=== PATIENT | female | born 1940 | race African-American/Black ===

== ENCOUNTER 2025-05-21 20:38 | Inpatient (IN) | payer MEDICARE, SELFPAY ==
[2025-05-21 16:15] VITALS: BP 142/71
[2025-05-21 16:54] LABS: Hematocrit 36.2 % (37.0-47.0); Hemoglobin 12.4 g/dL (12.0-16.0); Mean Corp Hgb Conc. 34.3 g/dL (33.0-37.0); Mean Corpuscular Volume 85.8 fL (81.0-99.0); Nucleated Red Blood Cells % 0 %; Platelet Count 136 10^3/uL (130-400); Red Cell Dist. Width 17.4 % (11.5-14.5)
[2025-05-21 17:03] LABS: ALT (SGPT) 92 U/L (0-35); AST (SGOT) 118 U/L (14-36); Albumin 2.8 g/dl (3.5-5.0); Alkaline Phosphatase 579 U/L (38-126); Blood Urea Nitrogen 76 mg/dl (7-17); Calcium 9.8 mg/dl (8.4-10.2); Carbon Dioxide 19 mmol/L (22-30); Chloride 105 mmol/L (98-107); Glucose 85 mg/dl (70-99); Potassium 4.8 mmol/L (3.5-5.1); Sodium 130 mmol/L (135-145); Total Protein 5.8 g/dl (6.3-8.2); eGFR 12.09
--- NOTE | 2025-05-21 19:34 | ED.GENMED ---
History of Present Illness
General
Chief Complaint: Abnormal Lab Value
Source: patient, records and spouse
Time Seen by Provider: 05/21/25 18:42
History of Present Illness
History of Present Illness:
84-year-old female with past medical history of breast cancer with bony metastases presenting to the ER at the request of the [facility] for evaluation of acute renal failure. Patient states that for the last 2 days or so she has
felt 'lousy' noting just a generalized malaise. She went to the outpatient infusion department yesterday where she had blood work done and had a liter of fluids given to her and was then sent home, contacted today for the abnormal renal function
and advised to come to the emergency department for further evaluation. She denies any fevers, chills, rigors, nausea or vomiting, bowel changes or urinary symptoms. She states she feels as if she is drinking her normal amount but not eating as
much as she normally did. Patient was discontinued off of Keytruda a few weeks ago due to side effects. No reported history of renal dysfunction. Patient denies any excessive use of anti-inflammatories.
Past History
Past History
ED Past Medical History: Cancer
ED Past Surgical History: Orthopedic
Social History
Tobacco: Non-smoker
Alcohol: None
Drug: None
Personal:
Living: with family
Review of Systems
Review of Systems
All Other Systems: ROS reviewed and negative except as documented in HPI and ROS
Phy Exam
Physical Exam
Physical Exam:
GENERAL: Alert , in no apparent distress, appears older than stated age, thin
HEAD: Normocephalic atraumatic
EYE: conjunctiva clear
NECK: Supple
ENT: o/p clr, mmm.
CARDIAC: Regular rate and rhythm
LUNGS: Clear breath sounds bilaterally, no acute respiratory distress, no wheezes/rales/rhonchi
NEUROLOGICAL: Alert and oriented
SKIN: Warm and dry, skin intact.
MUSCULOSKELETAL: well perfused. Nonpitting ankle edema
PSYCH: Normal and appropriate interaction.
Scores
Heart Failure Risk
Heart Failure Risk Score: Not Applicable
Heart Score for Chest Pain Patients
STEMI patient?: Not applicable
Withdrawal Assessment of Alcohol
Withdrawal Assessment Completed?: Not applicable
Course
Orders/Labs/Results
Orders:
Orders
05/21/25 16:28
CMP [Comprehensive Metabolic Panel] Urgent
Complete Blood Count/With Diff Urgent
05/21/25 18:43
Electrocardiogram (*1) Urgent
Reason for Study: Other
Other Reason for Exam: renal failure
Urinalysis Reflex To Culture Urgent
Urine Creatinine Urgent
0.9% Sodium Chloride 1000 ml [Nss] 1,000 ml IV BOLUS
05/21/25 18:44
EKG- Treatment ONCE
05/21/25 18:45
Urine - Eosinophils [Body Fluid for Eosinophils] Urgent
Fluid Source: Urine
Urine Sodium Urgent
05/21/25 19:30
0.9% Sodium Chloride 1000 ml [Nss] 1,000 ml IV BOLUS
05/21/25 19:33
Add On- LAB Urgent
Tests Added?: cpk
Abnormal Lab Results
05/21/25
16:28
Hct 36.2 L %
(37.0-47.0)
RDW 17.4 H %
(11.5-14.5)
Abs Immat Gran (auto) 0.3 H 10^3/uL
(0-0.05)
Absolute Lymphs (auto) 0.3 L 10^3/uL
(1.2-3.4)
Immature Gran % 4.4 H %
(0-0.5)
Neutrophils % 84.1 H %
(42.2-75.2)
Lymphocytes % 5.3 L %
(20.5-51.1)
Sodium 130 L mmol/L
(135-145)
Carbon Dioxide 19 L mmol/L
(22-30)
BUN 76 H mg/dl
(7-17)
Creatinine 3.6 H mg/dL
(0.6-1.0)
Total Bilirubin 2.1 H mg/dl
(0.2-1.3)
AST 118 H U/L
(14-36)
ALT 92 H U/L
(0-35)
Alkaline Phosphatase 579 H U/L
(38-126)
Total Protein 5.8 L g/dl
(6.3-8.2)
Albumin 2.8 L g/dl
(3.5-5.0)
05/21/25 16:28
05/21/25 16:28
Vital Signs
Initial and Last Documented VS:
Initial Vital Signs
Temp Pulse Resp BP Pulse Ox
97.5 F 62 16 142/71 96
05/21/25 16:15 05/21/25 16:15 05/21/25 16:15 05/21/25 16:15 05/21/25 16:15
Last Documented Vital Signs
Temp Pulse Resp BP Pulse Ox
97.5 F 62 16 142/71 96
05/21/25 16:15 05/21/25 16:15 05/21/25 16:15 05/21/25 16:15 05/21/25 16:15
MDM/Problems Addressed
Differential Diagnosis Includes:
Progression of mets/bone breakdown
Nephritis
Less concern for obstructive uropathy
Medication reaction
Dehydration
Electrolyte imbalance
MDM/Problems Addressed:
84-year-old female presenting to the ER for evaluation of acute renal failure at the request of her oncologist. She is in no acute distress but does admit to generalized malaise. No fevers or infectious symptoms. Recently discontinued off
Keytruda due to side effects. Labs initiated on arrival show a BUN of 76 and a creatinine of 3.6, sodium 130. Mild transaminitis likely due to known metastatic disease. Will treat here with additional fluids. Additional urine studies and
ultrasound of the kidneys ordered. Will notify hospitalist team, will likely need nephrology and consult.
Chronic conditions affecting care: Cancer
Acute Exacerbation and/or Progression of Chronic Illness: Cancer
*Pulse Oximetry
SaO2: 96
Oxygen Mode of Delivery: Room air
Patient hypoxic: no
*EKG
Heart Rate: 104
Rate: tachycardiac
Rhythm: sinus and PVC's
[place]: left axis deviation
Ischemia: non-specific ST changes
*Critical Care Note
Total Time (30-74mins, 75-104mins- exclusive of procedures): Not Applicable
Data Reviewed
Review of Other/Old Records Reveals: Labs and Radiology Studies
Source: patient
Patient Management
Discussion with other providers: Hospitalist
Escalation/DeEscalation of care consider admission/obs:
Hospitalist team was notified and accepts for continued evaluation and treatment
ED Attending Note
-
Portions of this chart may have been created with voice recognition software.� Occasional wrong word or��sound alike� substitutions may have occurred due to the inherent limitations of voice recognition software.
Discharge Plan
Interventions
Interventions:
*Risk Screen - Suicide Last Done: 05/21/25 16:10
*General Assessment Last Done: 05/21/25 16:15
*ED COVID-19 Vaccine History Last Done: 05/21/25 16:15
*ED Influenza Vaccine History Last Done: 05/21/25 16:15
Discharge Date and Time
Print Language: CHILEAN
--- NOTE | 2025-05-21 19:38 | HPS.HSE ---
Addendum entered and electronically signed by Vikash Cid DO 05/22/25 00:06:
Patient seen and examined independently. Agree with findings and plan as set forth by LINA Downing.
Patient is an 84y F with PMH significant for widely metastatic breast cancer no currently on active treatment who presents to ED at the direction of her Oncologist for evaluation of abnormal labs. Patient has been somewhat weak of late with poor
appetite. She stopped Keytruda a few weeks ago due to adverse side effects. She is on no treatment at present - though systemic chemo is being considered.
Patient had routine labs done as an outpatient and was called today and advised to present to the ED.
states that she has urinated 2-3 times in the past 24 hours. No hematuria or dysuria. No abdominal pain or flank pain. No fevers or chills.
Ass:
CECE
Bilateral Hydronephrosis
Breast Cancer with Metastases to Bone and Liver
Plan:
Admit for further evaluation and treatment.
IVFs overnight. Hold NSAIDs / nephrotoxic medications.
Follow urine output. Monitor for improvement in labs / lytes.
Imaging in the ED (US and CT) without contrast due to renal impairment.
No evidence of halima obstruction, mass, stone, etc.
? hazy retroperitoneal stranding which may denote infiltrative process - ? secondary to progressing malignancy?
Reviewed with Urology. No role for ureteral stenting.
If no improvement in renal function / hydro with IVFs - consider PCN in IR.
Alternative in this 84y F with widely metastatic malignancy would be consideration of Hospice care.
Original Note:
Family Physician
-
Family Physician:
Chief Complaint
-
outpatient blood work
History of Present Illness
84-year-old female with past medical history of breast cancer with bony metastases presenting to the ER at the request of the [facility] for evaluation of acute renal failure. patient complained of generalized weakness, tired for past
few days. she had three episodes of loose stool on Tuesday. as per she does not eat very well. she only drinks 1/2 of ensure and sips on the water. patient stated LE edema for past few days. she also complained of dry skin. as per ,
she was having some slurred speech fo past few days. denied PALMER, dizzy or syncope. denied fever, chills, cough, congestion, chest pain, sob. denied abdominal pain,n,v. denied dysuria or hematuria. She went to the outpatient infusion department
yesterday where she had blood work done and had a liter of fluids given to her and was then sent home, contacted today for the abnormal renal function and advised to come to the emergency department for further evaluation. Patient was discontinued
off of Keytruda a few weeks ago due to side effects.
upon arrival cr of 3.6. recived normal saline x2 bag. admitting for further management
Medical History
Past Medical History
Past Medical History: Reports Other
Additional Past Medical History:
right breast cancer with bone mets
Past Surgical History: Reports Other
Additional Past Surgical History:
right mastectomy
right total hip arthroplasty
left femur proximal femur screw fixation
Social History
Tobacco: Non-smoker
Alcohol: None
Drug: None
Personal:
Living: With Family
Family History
Family History: Not pertinent
Allergies / Home Medications
Allergies reflects when Allergies were last updated in [facility].
Home Medications with original date entered in [facility]
Allergy/Medication List:
Allergies
Allergy/AdvReac Type Severity Reaction Status Date / Time
No Known Allergies Allergy Unverified 05/21/25 16:19
Review of Systems
-
Constitutional: Reports Fatigue
EENT: Reports No Symptoms
Respiratory: Reports No Symptoms
Cardiac: Reports No Symptoms
Abdomen/GI: Reports Diarrhea
: Reports No Symptoms
Musculoskeletal: Reports No Symptoms
Skin: Reports No Symptoms
Neurological: Reports Weakness
Endocrine: Reports No Symptoms
Hematologic/Lymphatic: Reports No Symptoms
Psych: Reports No Symptoms
Physical Exam
Vital Signs
Vital Signs
Temp Pulse Resp BP Pulse Ox
97.5 F 62 16 142/71 96
05/21/25 16:15 05/21/25 16:15 05/21/25 16:15 05/21/25 16:15 05/21/25 19:38
Physical Exam
General: Well Developed, Well Nourished and No Apparent Distress
HEENT: NormoCephalic, Moist mucous membranes and Atraumatic
Respiratory: Clear
Cardiac: S1/S2 and Regular Rhythm; No Murmur or Rub
GI: Soft, Non Tender, Non Distended and Normal Bowel Sounds; No Organomegaly
Rectal: Deferred by Provider
Musculoskeletal: No Clubbing, No Cyanosis and Other (b/l LE edema)
Skin: No Rash
Neuro: AO x 3 and Nonfocal/grossly intact
Psych: Calm
Laboratory Results
-
05/21/25 16:28
05/21/25 16:28
Laboratory Results
Total Bilirubin 2.1 mg/dl (0.2-1.3) H 05/21/25 16:28
AST 118 U/L (14-36) H 05/21/25 16:28
ALT 92 U/L (0-35) H 05/21/25 16:28
Alkaline Phosphatase 579 U/L (38-126) H 05/21/25 16:28
Data Reviewed
-
Lab Data: Labs Reviewed by me
Impression/Plan
-
#acute renal failure/hyponatremia concern for dehydration/bilateral hydronephrosis
-na 130, cr 3.6
-US of kidneys MODERATE BILATERAL RENAL COLLECTING SYSTEM DILATATION.Known small right pleural effusion and hepatic lesions compatible with known metastatic disease.
-received NSx2l
-UA for creatinine, sodium, eosinophil, CK sent
-UA ordered in ER
-fluids continued
-BMP in am
-urology consulted
#transaminitis due to know metastatic disease
-TBili 2.1,AST 118,ALT 92,ALK 579
-ctm
#hxt of breast cancer with bone oren
-follows [facility]
-oxy continued
#DVT prophylaxis
-scd
#CODE status
-full code
[2025-05-21] MEDS: NSS 1000 IV (19:44)
[2025-05-21 19:57] VITALS: BMI 23.0
[2025-05-21 19:59] LABS: Urine Character Clear (Clear)
--- NOTE | 2025-05-21 20:01 | ED.GENMED ---
History of Present Illness
General
Chief Complaint: Abnormal Lab Value
Source: patient
Time Seen by Provider: 05/21/25 18:42
History of Present Illness
History of Present Illness:
84-year-old female with past medical history of metastatic breast cancer to the bone presenting to the emergency department for evaluation at the request
Past History
Past History
ED Past Medical History: Cancer
ED Past Surgical History: Orthopedic
Social History
Tobacco: Non-smoker
Alcohol: None
Drug: None
Personal:
Living: with family
Course
Orders/Labs/Results
Orders:
Orders
05/21/25 16:28
CMP [Comprehensive Metabolic Panel] Urgent
Complete Blood Count/With Diff Urgent
Creatine Phosphokinase Urgent
Comment: ADD ON
05/21/25 18:43
Electrocardiogram (*1) Urgent
Reason for Study: Other
Other Reason for Exam: renal failure
0.9% Sodium Chloride 1000 ml [Nss] 1,000 ml IV BOLUS
05/21/25 18:44
EKG- Treatment ONCE
05/21/25 19:30
0.9% Sodium Chloride 1000 ml [Nss] 1,000 ml IV BOLUS
05/21/25 19:33
Add On- LAB Urgent
Tests Added?: cpk
05/21/25 19:38
US Kidneys [US Renal Only W/O Bladder] Urgent
Comment:
Reason For Exam: acute renal failure
05/21/25 19:49
Urinalysis Reflex To Culture Urgent
Date Specimen was Collected: 05/21/25
Time Specimen was Collected: 19:47
Urine - Eosinophils [Body Fluid for Eosinophils] Urgent
Fluid Source: Urine
Date Specimen was Collected: 05/21/25
Time Specimen was Collected: 19:47
Urine Creatinine Urgent
Date Specimen was Collected: 05/21/25
Time Specimen was Collected: 19:47
Urine Microscopic Reflex Cult Urgent
Urine Sodium Urgent
Date Specimen was Collected: 05/21/25
Time Specimen was Collected: 19:47
Urine Culture Urgent
OZ Source: U
Specimen Description:
Date Specimen was Collected: 05/21/25
Time Specimen was Collected: 19:47
Abnormal Lab Results
05/21/25 05/21/25
16:28 19:49
Hct 36.2 L %
(37.0-47.0)
RDW 17.4 H %
(11.5-14.5)
Abs Immat Gran (auto) 0.3 H 10^3/uL
(0-0.05)
Absolute Lymphs (auto) 0.3 L 10^3/uL
(1.2-3.4)
Immature Gran % 4.4 H %
(0-0.5)
Neutrophils % 84.1 H %
(42.2-75.2)
Lymphocytes % 5.3 L %
(20.5-51.1)
Sodium 130 L mmol/L
(135-145)
Carbon Dioxide 19 L mmol/L
(22-30)
BUN 76 H mg/dl
(7-17)
Creatinine 3.6 H mg/dL
(0.6-1.0)
Total Bilirubin 2.1 H mg/dl
(0.2-1.3)
AST 118 H U/L
(14-36)
ALT 92 H U/L
(0-35)
Alkaline Phosphatase 579 H U/L
(38-126)
Total Protein 5.8 L g/dl
(6.3-8.2)
Albumin 2.8 L g/dl
(3.5-5.0)
Ur Occult Blood Reflex 4+ A
(Negative)
Urine Urobilinogen 2+ A
(Neg - 1+)
Leukocyte Esterase Rfl 1+ A
(Negative)
Urine Albumin (Reflex) 1+ A
(Neg - Trace)
05/21/25 16:28
05/21/25 16:28
Vital Signs
Initial and Last Documented VS:
Initial Vital Signs
Temp Pulse Resp BP Pulse Ox
97.5 F 62 16 142/71 96
05/21/25 16:15 05/21/25 16:15 05/21/25 16:15 05/21/25 16:15 05/21/25 16:15
Last Documented Vital Signs
Temp Pulse Resp BP Pulse Ox
97.5 F 62 16 142/71 96
05/21/25 16:15 05/21/25 16:15 05/21/25 16:15 05/21/25 16:15 05/21/25 19:38
*Pulse Oximetry
SaO2: 96
Oxygen Mode of Delivery: Room air
ED Attending Note
-
Portions of this chart may have been created with voice recognition software.� Occasional wrong word or��sound alike� substitutions may have occurred due to the inherent limitations of voice recognition software.
Discharge Plan
Departure
Patient Disposition: Admit
Date of Disposition: 05/21/25
Time of Disposition: 20:01
Presentation/result/management discussed w/ accepting MD/DO: Hospitalist
Discharge Problem:
Acute renal failure, Cancer, metastatic to bone
Referrals:
UNKNOWN - PT DOES,NOT KNOW [Family Provider]
Interventions
Interventions:
*Risk Screen - Suicide Last Done: 05/21/25 16:10
*General Assessment Last Done: 05/21/25 16:15
*Neglect/Abuse Screening Last Done: 05/21/25 19:52
*ED COVID-19 Vaccine History Last Done: 05/21/25 16:15
*ED Influenza Vaccine History Last Done: 05/21/25 16:15
[facility] Fall Risk Assessment Tool Last Done: 05/21/25 19:51
Discharge Date and Time
Print Language: EAST TIMOR[place]
[2025-05-21 20:07] LABS: Urine White Cell 26-30 /HPF (0-5)
[2025-05-21 20:39] LABS: Body Fluid for Eosinophils No Eosinophils seen
[2025-05-21 21:00] VITALS: BP 128/83
[2025-05-21] MEDS: NSS IV ×2 (22:32→23:30)
[2025-05-21 23:46] VITALS: BP 141/84; BMI 21.4
--- NOTE | 2025-05-22 01:44 | PTCARENOTE ---
Pt arrived from ED on stretcher, pt ambulated with one person assist to bed. AO*3 and cooperative. VS taken. Pt's at bedside. Pt has IV fluids running. Pt denies any pain or discomfort. Call robin within reach. Will continue to monitor pt.
[2025-05-22] MEDS: NSS 1000 IV (02:31)
[2025-05-22 07:16] VITALS: BP 137/75
[2025-05-22 08:08] LABS: Hematocrit 31.2 % (37.0-47.0); Hemoglobin 10.7 g/dL (12.0-16.0); Mean Corp Hgb Conc. 34.3 g/dL (33.0-37.0); Mean Corpuscular Volume 85.5 fL (81.0-99.0); Platelet Count 105 10^3/uL (130-400); Red Cell Dist. Width 17.2 % (11.5-14.5)
--- NOTE | 2025-05-22 08:48 | W.PN.HOSP.TC ---
Today's Communication/Plan
-
See plan
Assessment / Plan
Assessment / Plan
Physical Exam
General: Acute on chronically ill
HEENT: NormoCephalic, Moist mucous membranes and Atraumatic
Respiratory: Clear
Cardiac: S1/S2 and Regular Rhythm; No Murmur or Rub
GI: Soft, Non Tender, Non Distended and Normal Bowel Sounds; No Organomegaly
Rectal: Deferred by Provider
Musculoskeletal: No Clubbing, No Cyanosis and Other (b/l LE edema)
Skin: No Rash
Neuro: AO x 3 and Nonfocal/grossly intact
Psych: Calm
A/P:
Acute kidney injury/ Hyponatremia/hypoglycemia/progression of metastatic breast cancer
CECE appears multifactorial related to advanced cancer, postobstructive, dehydration with decreased oral intake. Same goes for hyponatremia and hyperglycemia.
Labs: Na 130 up to 132. Creatinine from 3.6 yesterday and today is 3.5
Imaging: Renal ultrasound shows moderate bilateral renal collecting system dilatation. Known small right pleural effusion and hepatic lesions compatible with metastatic disease
Interventions:
Received NS � 2 L
UA for creatinine, sodium, eosinophils, CK sent
UA ordered in ER but appears to be asymptomatic bacteriuria.
IV fluids continued but changed to D5 NS
Plan:
Oncology consult-discussed with oncology and given advance of her underlying cancer best to move forward with hospice care rather than any intervention at the moment. Hospice consulted today. Discussed with patient and at bedside.
Urology consulted
Transaminitis (due to known metastatic disease)
TBili 2.1, AST 118, ALT 92, ALK 579 upon admission
Continue to monitor
History of Breast Cancer with Bone Metastases
Follows [facility]. Oncology consulted today-discussed with oncology today.
Oxycodone continued
DVT Prophylaxis
SCD
Code Status
Changed to DNR. Prognosis guarded.
Total time spent on today's encounter was 52 minutes which included time spent in counseling the patient/family regarding diagnosis and treatment plan as listed above, goals of care, and symptom management. Case was discussed with nursing staff,
specialists, and care coordinators/case management. All labs and imaging personally reviewed by me. Remainder the time spent in detailed review of previous records, lab data, imaging, and other medical provider documentation.
Anticipated Discharge: 24 - 48 hours
Subjective/Interval History
-
Date of Service: May 22, 2025
Patient is not urinating much. Patient is not eating much either. Overall looks frail. Afebrile
Objective Data
-
Labs:
Laboratory Results
05/22/25
07:03
WBC 4.4 L
Hgb 10.7 L
Hct 31.2 L
Plt Count 105 L D
Sodium Pending
Potassium Pending
Chloride Pending
Carbon Dioxide Pending
BUN Pending
Creatinine Pending
Glucose Pending
Calcium Pending
Total Bilirubin Pending
AST Pending
ALT Pending
Alkaline Phosphatase Pending
Vital Signs:
Vital Signs
Temp Pulse Resp BP Pulse Ox
97.8 F 85 16 141/84 95
05/21/25 23:46 05/21/25 23:46 05/21/25 23:46 05/21/25 23:46 05/21/25 23:46
[2025-05-22 08:49] LABS: ALT (SGPT) 76 U/L (0-35); AST (SGOT) 93 U/L (14-36); Albumin 2.3 g/dl (3.5-5.0); Alkaline Phosphatase 473 U/L (38-126); Blood Urea Nitrogen 71 mg/dl (7-17); Calcium 9.2 mg/dl (8.4-10.2); Carbon Dioxide 19 mmol/L (22-30); Chloride 108 mmol/L (98-107); Estimated Creatinine Clearance 11 ml/min; Glucose 47 mg/dl (70-99); Potassium 4.6 mmol/L (3.5-5.1); Sodium 132 mmol/L (135-145); Total Protein 5.0 g/dl (6.3-8.2); eGFR 12.51
[2025-05-22 09:50] VITALS: BP 137/77; PULSE 99; O2SAT 96
[2025-05-22 09:52] VITALS: BP 137/77; PULSE 99; O2SAT 96
--- NOTE | 2025-05-22 09:58 | PTCARENOTE ---
Morning lab results showing pt's glucose 47- pt asymptomatic, denies h/o DM. Pt NPO status. DR. Bailon notified. Pt given oj; to be ordered diet PO. Will continue to monitor.
[2025-05-22] MEDS: KCL 1002.5 MEQ IV (11:45)
[2025-05-22 12:22] LABS: Glucose - Point of Care 71 mg/dl (70-99)
[2025-05-22 12:22] LABS: Glucose - Point of Care 46 mg/dl (70-99)
[2025-05-22 12:22] LABS: Glucose - Point of Care 91 mg/dl (70-99)
[2025-05-22 12:22] LABS: Glucose - Point of Care 59 mg/dl (70-99)
--- NOTE | 2025-05-22 12:39 | W.PN.URO.CBU ---
Today's Communication / Plan
-
PER PT FOR PERC TIBES OR HOSPICE
Assessment / Plan
-
pt with metastic breast b=rogelio corcoran failed med tx pt withAIAND BILATRAL HYDRO nEEDS TO DECIDE ABOT HOSPICE VS CONTINUING TX ETC. eXOLAINED IF PT WOUF K=LIKE TO CONTINUE THE V=BEST WAY IS BILATERAL PERCUTANEOUS DRAINS JJ STNTS WILL FAIL AND
BE SOURCE UTI DISCOMFOET AND NEED SRGERYTO CHANGE QUARTERLY PT WILL CONSIDE ROPTINS
Diagnosis
-
Date of Service: May 22, 2025
-
Patient Diagnosis:
weak with creatinine 3,6 in pt with new onset bilateral hydro and metastaic breast cancer is dehydated por appetie fro keytruda and underlyng disease
Post Op Day:
Subjective
-
weak
Objective
-
Vital Signs
Temp Pulse Resp BP Pulse Ox
98.5 F 97 16 137/75 95
05/22/25 07:16 05/22/25 07:16 05/22/25 07:16 05/22/25 07:16 05/22/25 08:58
Laboratory Results
05/22/25 07:03
05/22/25 07:03
Review of Systems
-
Constitutional: Weight Loss and Fatigue
Physical Exam
-
General - well developed, well nourished, no acute distress
Chest - clear bilaterally
Abdomen - soft, non-tender, positive bowel sounds, no CVAT, no incisional pain or distention
Genitalia - normal
Rectal - normal
Skin - warm & dry with no rash
Neuro - AOx3, no motor deficits
Extremities - no clubbing, no cyanosis, no edema
Incision - clean, dry
Dressing - clean, dry, intact
Counseling
-
PER PT
Care Review
Data Reviewed
Discussed with: Hospitalist and Nursing
CT Scan: Image Pers Reviewed
--- NOTE | 2025-05-22 13:26 | CON.ONC ---
Consultation
-
Date Consultation Requested: 05/22/25
Date Consultation Performed: 05/22/25
Requesting Provider: Adamaris
Performing Provider: Ragini
Reason for Consultation: Advanced breast cancer with CECE and hydronephrosis
Impression
Impression
Advanced metastatic breast cancer with rapid progression including bone and liver
Acute kidney injury/hydronephrosis
Severe deconditioning and poor performance status
Plan
Plan
Long discussion with patient and (45 min) and then with alone with agree that she does not wish aggressive resuscitation so DNR was ordered and interested in coming home with palliative care/hospice.
At this point, I discouraged this procedure such as percutaneous nephrostomies or stent placement as renal failure is a good palliative effect from advanced cancer.
Especially as they are moving towards hospice, hold off on urologic intervention.
Patient History
History of Present Illness
84y F with PMH significant for widely metastatic breast cancer with disease progression on previous pembrolizumab chemotherapy. Patient has been heavily pretreated with was of disease and now presents with acute kidney injury, creatinine of 3.6 and
renal ultrasound revealing moderate bilateral hydronephrosis. Patient PET CT scan reveals marked disease progression liver which is new from prior and extensive osseous disease with progression. Patient is very weak with poor appetite.
Patient be admitted for possible evaluation for urologic intervention.
Long discussion with patient as well as her . She does not wish aggressive therapies that will prolong or lead to suffering. She requests DNR and is interested in hospice care at home. Discussed that renal failure is effective in
palliating symptoms and reversing renal failure might actually worsen symptoms such as pain. Her functional status precludes her being able to receive additional treatment
Past-Medical/Surgical History
PMH:
Metastatic breast cancer
Chronic pain
GERD
SH:
, at bedside
Patient Medication
�Medication �Instructions �Recorded �Confirmed �Last Taken �Type
ibuprofen 200 mg tablet (Advil) 200 mg PO Q6H PRN moderate pain 05/21/25 05/21/25 Unknown History
oxycodone 10 mg tablet 10 mg PO Q6H PRN severe pain 05/21/25 05/21/25 Unknown History
Active Medications
Generic Name Dose Route Start Last Admin
Trade Name Freq PRN Reason Stop Dose Admin
Bisacodyl 10 mg 05/21/25 22:05
Bisacodyl 10 Mg Rectal Suppository RECTAL 06/18/25 22:04
[id number] PRN
constipation
Potassium Chloride 5 meq/ 1,002.5 mls @ 85 mls/hr 05/22/25 11:30 05/22/25 11:45
Dextrose/Sodium Chloride IV 1,002.5 mls
.[id number] SAVITA Administration
Oxycodone HCl 10 mg 05/21/25 22:05
Oxycodone 10 Mg Regular Release Tablet PO 06/04/25 22:04
Q6H PRN
severe pain
Polyethylene Glycol 17 grams 05/21/25 22:05
Polyethylene Glycol Powder 17 Grams Packet PO 06/18/25 22:04
DAILYPRN PRN
constipation
Senna/Docusate Sodium 1 tablet 05/21/25 22:05
Docusate W/Senna (Gabrielle-Colace) Tablet PO 06/18/25 22:04
BIDPRN PRN
constipation
Sodium Chloride 0 flush 05/21/25 23:00
Sodium Chloride 0.9% (Flush) Syringe IV 06/18/25 22:59
PER PROTOCOL SAVITA
Physical Exam
-
PS 4
General: Comfortable, Appears Chronically Ill and Cachetic; Negative Pain
Cardiology: S1 and S2
Pulmonary: Clear
GI: Soft
Neurology: Non Focal and Other (Lethargic and )
Labs
Lab Results
WBC 4.4 10^3/uL (4.8-10.8) L 05/22/25 07:03
RBC 3.65 10^6/uL (4.20-5.40) L 05/22/25 07:03
Hgb 10.7 g/dL (12.0-16.0) L 05/22/25 07:03
Hct 31.2 % (37.0-47.0) L 05/22/25 07:03
MCV 85.5 fL (81.0-99.0) 05/22/25 07:03
MCH 29.3 pg (27.0-31.0) 05/22/25 07:03
MCHC 34.3 g/dL (33.0-37.0) 05/22/25 07:03
RDW 17.2 % (11.5-14.5) H 05/22/25 07:03
Plt Count 105 10^3/uL (130-400) L D 05/22/25 07:03
MPV 10.3 fL (7.4-10.4) 05/22/25 07:03
Abs Immat Gran (auto) 0.3 10^3/uL (0-0.05) H 05/21/25 16:28
Absolute Neuts (auto) 4.8 10^3/uL (1.4-6.5) 05/21/25 16:28
Absolute Lymphs (auto) 0.3 10^3/uL (1.2-3.4) L 05/21/25 16:28
Absolute Monos (auto) 0.3 10^3/uL (0.1-0.6) 05/21/25 16:28
Absolute Eos (auto) 0.1 10^3/uL (0-0.7) 05/21/25 16:28
Absolute Basos (auto) 0.0 10^3/uL (0-0.2) 05/21/25 16:28
Immature Gran % 4.4 % (0-0.5) H 05/21/25 16:28
Neutrophils % 84.1 % (42.2-75.2) H 05/21/25 16:28
Lymphocytes % 5.3 % (20.5-51.1) L 05/21/25 16:28
Monocytes % 5.1 % (1.7-9.3) 05/21/25 16:28
Eosinophils % 0.9 % (0-6) 05/21/25 16:28
Basophils % 0.2 % (0-2) 05/21/25 16:
Creatinine 3.5 mg/dL (0.6-1.0) H 05/22/25 07:03
Vital Signs
Vital Signs
Temp Pulse Resp BP Pulse Ox
98.5 F 97 16 137/75 95
05/22/25 07:16 05/22/25 07:16 05/22/25 07:16 05/22/25 07:16 05/22/25 08:58
[2025-05-22 14:02] LABS: Glucose - Point of Care 74 mg/dl (70-99)
--- NOTE | 2025-05-22 14:25 | CM ---
Cm consult for hospice. Hospice nurse will see/talk to and pt tomorrow
[2025-05-22 15:00] VITALS: BP 139/72
--- NOTE | 2025-05-22 15:46 | HOSPNOTE ---
Will meet with patient and spouse tomorrow to discuss hospice. More information to follow.
--- NOTE | 2025-05-22 16:27 | PTCARENOTE ---
Pt AAO x3; forgetful. CASTILLO; OOB to BR with assist x1/walker, pt weak/sl unsteady w/OOB activity. VSS. On room air- pulseox 95%, no SOB noted. Abd soft, rounded, mohsen small amts PO- taking liquids. Pt voided small amt in BR; denies discomfort.
IVF's D5NS with 5 meq KCL @ 85 ml/hr infusing via Lt forearm site without sx of infiltration. Resting in bed at present, no c/o. Will continue to monitor.
[2025-05-22 16:30] LABS: Glucose - Point of Care 96 mg/dl (70-99)
[2025-05-22 23:26] VITALS: BP 115/73
[2025-05-23] MEDS: KCL 1002.5 MEQ IV ×2 (01:28→12:07)
[2025-05-23 07:55] VITALS: BP 117/63
[2025-05-23 08:25] LABS: Hematocrit 29.6 % (37.0-47.0); Hemoglobin 10.1 g/dL (12.0-16.0); Mean Corp Hgb Conc. 34.1 g/dL (33.0-37.0); Mean Corpuscular Volume 87.8 fL (81.0-99.0); Red Cell Dist. Width 17.6 % (11.5-14.5)
[2025-05-23 08:28] LABS: ALT (SGPT) 59 U/L (0-35); AST (SGOT) 88 U/L (14-36); Albumin 2.0 g/dl (3.5-5.0); Alkaline Phosphatase 462 U/L (38-126); Blood Urea Nitrogen 65 mg/dl (7-17); Calcium 8.8 mg/dl (8.4-10.2); Carbon Dioxide 18 mmol/L (22-30); Chloride 109 mmol/L (98-107); Estimated Creatinine Clearance 9 ml/min; Glucose 86 mg/dl (70-99); Potassium 4.3 mmol/L (3.5-5.1); Sodium 132 mmol/L (135-145); Total Protein 4.4 g/dl (6.3-8.2); eGFR 10.66
--- NOTE | 2025-05-23 09:09 | W.PN.URO.CBU ---
Today's Communication / Plan
-
hospice
Assessment / Plan
-
pt with metastatic breast cancerfald medical tx. Now bilateral hydro Discussed options Decided on hospice
Diagnosis
-
Date of Service: May 23, 2025
-
Patient Diagnosis:
Post Op Day:
Patient Diagnosis:
weak with creatinine 3,6 in pt with new onset bilateral hydro and metastaic breast cancer is dehydated por appetie fro keytruda and underlyng disease
Post Op Day:
Subjective
-
asx
Objective
-
Vital Signs
Temp Pulse Resp BP Pulse Ox
98.5 F 98 16 117/63 95
05/23/25 07:55 05/23/25 07:55 05/23/25 07:55 05/23/25 07:55 05/23/25 07:55
Intake and Output
05/22/25 05/23/25 05/24/25
06:59 06:59 06:59
Intake Total 2280 / 2280
Balance 2280 / 2280
Intake:
Oral fluids 1020 / 1020
IV fluids (Total) 660 / 660
IV piggybacks 600 / 600
Other:
How many times incontinent 1
SATURATED amount urine
Number of approximated MODERATE 1
amounts of urine
Laboratory Results
05/23/25 07:26
05/23/25 07:26
Review of Systems
-
Constitutional: Weight Loss and Fatigue
Physical Exam
-
General - well developed, well nourished, no acute distress
Chest - clear bilaterally
Abdomen - soft, non-tender, positive bowel sounds, no CVAT, no incisional pain or distention
Genitalia - normal
Rectal - normal
Skin - warm & dry with no rash
Neuro - AOx3, no motor deficits
Extremities - no clubbing, no cyanosis, no edema
Incision - clean, dry
Dressing - clean, dry, intact
Care Review
Data Reviewed
Discussed with: Nursing
--- NOTE | 2025-05-23 09:13 | W.PN.HOSP.TC ---
Today's Communication/Plan
-
Hospice eval. Pain control.
Assessment / Plan
Assessment / Plan
Physical exam:
General: Acute on chronically ill
HEENT: Normocephalic, Atraumatic and Moist Mucous Membranes
Respiratory: Clear to Auscultation; Negative Wheezes, Rales or Rhonchi
Cardiac: Regular Rhythm and S1/S2
GI: Soft, Nontender and Nondistended
Musculoskeletal: No Clubbing, No Cyanosis and No Edema
Neuro: Awake, Alert and Oriented, no neurological deficit
Psych: Calm
A/P:
Advanced metastatic breast cancer:
Discussions took place and patient opted for home hospice tomorrow
Gentle IV fluid hydration and stop tomorrow
Continue pain medications
No procedures or or surgery
Discussed with family at bedside
Hospice consulted
Acute kidney injury:
Due to advanced metastatic breast cancer
Did not monitor labs
Elevated LFTs:
Same as above due to metastatic breast cancer
No need to monitor
Anemia of chronic disease:
Related to breast cancer
Hyponatremia:
Mild
Non-anion gap metabolic acidosis:
Related to CECE
Moderate protein calorie malnutrition:
Poor oral intake
Start protein shakes
DVT prophylaxis:
SCDs
CODE STATUS:
DNR
Total time spent on today's encounter was 35 minutes which included time spent in counseling the patient/family regarding diagnosis and treatment plan as listed above, goals of care, and symptom management. Case was discussed with nursing staff,
specialists, and care coordinators/case management. All labs and imaging personally reviewed by me. Remainder the time spent in detailed review of previous records, lab data, imaging, and other medical provider documentation.
Anticipated Discharge: Within 24 hours
Subjective/Interval History
-
Date of Service: May 23, 2025
Patient feels very tired overall. Looks frail.
Objective Data
-
Labs:
Laboratory Results
05/23/25
07:26
WBC 5.0
Hgb 10.1 L
Hct 29.6 L
Plt Count Pending
Sodium 132 L
Potassium 4.3
Chloride 109 H
Carbon Dioxide 18 L
BUN 65 H
Creatinine 4.0 H
Glucose 86
Calcium 8.8
Total Bilirubin 1.6 H
AST 88 H
ALT 59 H
Alkaline Phosphatase 462 H
Vital Signs:
Vital Signs
Temp Pulse Resp BP Pulse Ox
98.5 F 98 16 117/63 95
05/23/25 07:55 05/23/25 07:55 05/23/25 07:55 05/23/25 07:55 05/23/25 07:55
I&O
05/22/25 05/23/25 05/24/25
06:59 06:59 06:59
Intake Total 2280 / 2280
Balance 2280 / 2280
[2025-05-23 11:07] VITALS: BMI 21.4
--- NOTE | 2025-05-23 13:10 | HOSPNOTE ---
Spoke with family and patient and they are in agreement with hospice and the philosophy. The plan is the patient will be discharged to home tomorrow 05/24 the spouse will be picking up the patient at 1pm. We will admit onto hospice services on
Friday 05/25 per the family request. CM and Attending aware of plan.
[2025-05-23 14:18] VITALS: BP 138/83; PULSE 58
[2025-05-23 15:34] VITALS: BP 151/89
--- NOTE | 2025-05-23 16:19 | CM ---
Addendum entered by Marianna Dumont 05/23/25 16:26:
IA deferred due to patient's hospice status. IMM given and placed on chart.
Original Note:
Hospice Care into speak with family today. Pain management ongoing. Plan for DC to home tomorrow
Plan: DC home with Hospice care
[2025-05-23 23:34] VITALS: BP 136/82
[2025-05-24] MEDS: KCL 1002.5 MEQ IV (02:31)
[2025-05-24 07:00] VITALS: BP 116/75
--- NOTE | 2025-05-24 11:56 | W.PN.HOSP.TC ---
Today's Communication/Plan
-
Discharge planning today
Assessment / Plan
Assessment / Plan
Physical exam:
General: Chronically ill
HEENT: Normocephalic, Atraumatic and Moist Mucous Membranes
Respiratory: Clear to Auscultation; Negative Wheezes, Rales or Rhonchi
Cardiac: Regular Rhythm and S1/S2
GI: Soft, Nontender and Nondistended
Musculoskeletal: No Clubbing, No Cyanosis and No Edema
Neuro: Awake, Alert and Oriented, no neurological deficit
Psych: Calm
A/P:
Advanced metastatic breast cancer:
Discussions took place and patient opted for home hospice today
Stop IV fluid
Continue pain medications
No procedures or or surgery
Discussed with family at bedside yesterday
Hospice consulted
Plan to discharge today
Acute kidney injury:
Due to advanced metastatic breast cancer
Did not monitor labs
Elevated LFTs:
Same as above due to metastatic breast cancer
No need to monitor
Anemia of chronic disease:
Related to breast cancer
Hyponatremia:
Mild
Non-anion gap metabolic acidosis:
Related to CECE
Moderate protein calorie malnutrition:
Poor oral intake
Start protein shakes
DVT prophylaxis:
SCDs
CODE STATUS:
DNR
Anticipated Discharge: Today
Subjective/Interval History
-
Date of Service: May 24, 2025
No new complaints.
Objective Data
-
Vital Signs:
Vital Signs
Temp Pulse Resp BP Pulse Ox
98.6 F 93 12 116/75 95
05/24/25 07:00 05/24/25 07:00 05/24/25 07:00 05/24/25 07:00 05/24/25 08:32
I&O
05/23/25 05/24/25 05/25/25
06:59 06:59 06:59
Intake Total 2280 / 2280 960 / 960
Balance 2280 / 2280 960 / 960
[2025-05-24 12:05] VITALS: BP 112/72
--- NOTE | 2025-05-24 12:13 | W.DCSUMMARY ---
Discharge Summary
Discharge Data
Date of Admission: 05/21/25
Date of Discharge: 05/24/25
Total time spent discharging patient (in min): 35
-
Pending Results: No
Hospital Course
Patient 84 years old female with history of advanced metastatic breast cancer, chronic pain, GERD, came into the hospital with generalized malaise and CECE along with hydronephrosis. Patient had evidence of marked disease progression even prior to
her presentation. Oncology was consulted. Oncology discussed with patient and family and they opted for hospice. Urology also offered the possibility of percutaneous nephrostomy but given hospice care seems to be the best option this procedure
was not pursued. Patient is going to home hospice today. No other events were noted.
Discharge duration: 35 minutes
Discharge Plan
-
Patient Disposition: Home with Hospice
Discharge Diagnosis/Procedures: Advanced metastatic breast cancer. Acute kidney injury. Elevated liver function tests. Anemia of chronic disease. Hyponatremia. Metabolic acidosis.
Diet: Regular
Activity: As tolerated
Referrals:
Roly Snider DO [Family Provider, Family Practice] - in less than 1 week
Prescriptions:
Continued
oxycodone 10 mg tablet
10 mg PO Q6H PRN (Reason: severe pain)
Discontinued
ibuprofen [Advil] 200 mg Tablet
200 mg PO Q6H PRN (Reason: moderate pain)
Discharge Orders:
Discharge Patient (As Directed); Ordered 05/24/25
Ordered By: Sonny Bailon
Discharge Date and Time
Discharge Date/Time: 05/24/25 13:40
Print Language: GREEK
--- NOTE | 2025-05-24 12:36 | CM ---
Pt is discharged to home with hospice. Family member will transport pt home.
[2025-05-24] MEDS: KCL IV (12:47)
== END 2025-05-24 13:40 | disposition hospice, home (50) | DRG 436 ==
LOC: 4 EAST ACU 20:38
PROVIDERS: Physician Assistant Medical; Registered Nurse; ADMITTING PHYSICIAN Hospitalist; ATTENDING PHYSICIAN Hospitalist; CONSULT PHYSICIAN Specialist; EMERGENCY PHYSICIAN Emergency Medicine; FAMILY PHYSICIAN Family Medicine; OTHER PHYSICIAN Internal Medicine Hematology & Oncology
DX: C78.7 Secondary malignant neoplasm of liver and intrahepatic bile duct (principal); C79.51 Secondary malignant neoplasm of bone; N17.9 Acute kidney failure, unspecified; E87.1 Hypo-osmolality and hyponatremia; E87.20 Acidosis, unspecified; N13.30 Unspecified hydronephrosis; C50.911 Malignant neoplasm of unspecified site of right female breast; D63.8 Anemia in other chronic diseases classified elsewhere; G89.29 Other chronic pain; K21.9 Gastro-esophageal reflux disease without esophagitis; Z92.26 Personal history of immune checkpoint inhibitor therapy; Z66 Do not resuscitate; Z90.11 Acquired absence of right breast and nipple; Z96.641 Presence of right artificial hip joint
CPT/HCPCS: 74176; 76775; 80053; 81003; 81015; 81099; 82550; 82570; 82962; 84300; 85025; 85027; 87086; 93005; 96360; 97116; 97163; 97167; 99285